=== PATIENT | female | born 1995 | race Caucasian/White ===

== ENCOUNTER 2019-05-15 20:11 | Emergency (ER) | payer OTHER ==
[~2019-05-15] VITALS: Ht 167.6 cm; Wt 61.0 kg
[~2019-05-15 20:11] MED LIST: ALBU18HF INHALATION
[2019-05-15 20:16] VITALS: BP 122/88; PULSE 56; RESP 18; Ht 167.6 cm; Wt 61.0 kg
--- NOTE | 2019-05-15 20:46 | ERD ---
ER Documentation Chief Complaint Chief Complaint SOB X 6 MONTHS SEEN PMD BUT STILL IS HAS SYMPTOMS HPI 23-year-old female previously healthy presents emergency department complaining of intermittent shortness of breath for the past 6 months but worsening today. She feels a heaviness in her lungs when exhaling. She also feels anxious. Today's episode occurred while sitting on the couch watching TV and lasted approximately 10 minutes. She denies any chest pain currently. She denies any fevers or chills or night sweats. She denies any recent long travel in a car or airplane. She denies any recent surgeries. She has never had a blood clot in her lungs or extremities. She denies any recent unilateral leg swelling or pain. Denies any other symptoms at this time. ROS All systems reviewed and are negative except as per history of present illness. Medications Home Meds No Active Prescriptions or Reported Meds Allergies Allergies: Coded Allergies: No Known Allergy (Unverified , 10/03/12) PMhx/Soc Medical and Surgical Hx: pt denies Medical Hx, pt denies Surgical Hx History of Surgery: No Anesthesia Reaction: No Hx Neurological Disorder: No Hx Respiratory Disorders: No Hx Cardiac Disorders: No Hx Psychiatric Problems: No Hx Miscellaneous Medical Probl: No Hx Alcohol Use: No Hx Substance Use: No Hx Tobacco Use: No Smoking Status: Never smoker Physical Exam Vitals Vital Signs Date Temp Pulse Resp B/P (MAP) Pulse Ox O2 O2 Flow FiO2 Time Delivery Rate 05/15/19 98.1 56 18 122/88 99 20:16 (99) Physical Exam Const: No acute distress Head: Atraumatic Eyes: Normal Conjunctiva ENT: Normal External Ears, Nose and Mouth. Neck: Full range of motion. No meningismus. Resp: Clear to auscultation bilaterally Cardio: Regular rate and rhythm, no murmurs Abd: Soft, non tender, non distended. Normal bowel sounds Skin: No petechiae or rashes Back: No midline or flank tenderness Ext: No cyanosis, or edema Neur: Awake and alert Psych: Normal Mood and Affect Procedures/MDM 23-year-old female presents emergency department complaining of intermittent shortness of breath for the past 6 months but worsening today. Patient's physical examination is within normal limits. Lung examination showed no respiratory distress. No crackles. No wheezing. PERC criteria was utilized and PE was ruled out. Chest x-ray showed no acute abnormalities. PERC Criteria Assessment: Age > 50: No HR > 100: No 02 < 95%: No H/o DVT/PE: No Recent trauma/surgery: No Hemoptysis No Exogenous Estrogen: No Unilateral Leg swelling: No Pretest probability > 15%: No Less than 2% risk of PE. No further work up is necessary Medical decision making: Patient symptoms likely secondary to bronchitis, anxiety reaction or other nonemergent process. Low suspicion for pneumonia, aortic dissection, pneumothorax, AAA, status asthmaticus, or other emergencies. Patient will be discharged home in stable condition with a prescription for Ventolin inhaler. She is advised to return here immediately for any new or concerning symptoms and have close follow-up with her primary care physician. She was in agreement with the diagnosis and plan and her questions and concerns were addressed prior to discharge. Departure Diagnosis: Primary Impression: Shortness of breath Condition: Fair Patient Instructions: Coping with Shortness of Breath: Controlling Stress Additional Instructions: Follow up with your PCP within the next 1-3 days for a repeat evaluation. If you require a referral to a specialist, your Primary Care Provider may be able to provide this for you. In most patient cases, a referral is not required. If you have further questions regarding this matter, please ask your Primary Care Provider. Return the the emergency department immediately if symptoms worsen or change. If you have any questions regarding medications, ask your pharmacist or us before you leave. If any adverse reactions, occur while taking your medications, discontinue the treatment and return to the emergency department immediately. If any new or worsening symptoms, uncontrolled fevers, or other unexplained symptoms occur, return to the emergency department immediately. Take your medications as directed, and complete the entire course of treatment. JESSICA CHAVEZ PA-C May 15, 2019 20:46
== END 2019-05-15 21:48 | disposition home or self-care (01) ==
LOC: FTE 20:11
DX: R06.02 Shortness of breath (principal)
CPT/HCPCS: 71045; Z7502